=== PATIENT | female | born 2000 | race African-American/Black ===

== ENCOUNTER 2025-03-14 07:47 | Outpatient (AMB) | payer OTHER, SELFPAY ==
--- OUTSIDE RECORDS SUMMARY | 2007-03-11 20:00 | XMS_ITS | Continuity of Care Document ---
Author Organization [facility] vices Address [address] [place] [address] Phone Care Team Providers Care Supervisor Special Effects Name Role Phone Unavailable Unavailable Unavailable Procedures Procedure Date EST EXPANDED Advance Directives Directive Yes / No Effective Date File Name No Information Encounters Encounter Description Practice Location Reason(s) For Visit Diagnoses Date Provider Providers Copied on Encounter [facility], [address] [place] [address], [id number], tel:[phone] Conversion STREPTOCOCCAL SORE THROAT No Information EST EXPANDED [facility], [address] [place] [address], [address], [place] tel:[phone] [facility] No Information No Information Family History Family Member Type Diagnosis Age At Onset No Information Payers Payer name Insurance type Covered green party ID Authoriza tion(s) No Information Social History Type Description Quantity Date Captured Comments Sex Female Smoking Status No Information Chief Complaint And Reason For Visit No Information Reason For Referral Reason For Referral No Information History Of Present Illness Encounter Date Complaint History Of Prese nt Illness No Information Functional Status Date Functional Assessmen t No Information Instructions Date Instruction Additional Infor mation No Information Assessments Type Assessment Date No Information Patient Care Teams Name Effective Dates (start - stop) Status Members No Information
[2025-03-14 07:52] VITALS: BP 128/72; PULSE 79; O2SAT 98; BMI 44.2
--- NOTE | 2025-03-14 07:52 | A.OFFPC_ITS ---
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 Presenting with management of hypothyroidism, anxiety, and insomnia, along with addressing knee and ankle pain. The patient has a history of hypothyroidism and has been prescribed levothyroxine, but has not been taking it consistently due to lack of a primary care provider and insurance issues. She reports that when she was taking the medication regularly, her mood and energy levels improved. The patient reports experiencing anxiety, particularly in social settings, and has been considering medication but is hesitant due to concerns about taking pills. She has been seeing a therapist, which has been helpful, but has not been consistent with appointments recently. The patient experiences insomnia, which she attributes to anxiety and racing thoughts at night. She has tried various supplements and therapies without significant improvement. The patient reports chronic knee and ankle pain due to previous injuries that were not fully treated. She has experienced multiple sprains and impacts, leading to stiffness and pain, particularly in the right knee. The patient has a family history of HCM and is seeking screening for the condition. She also mentions having constipation. [facility] Medical History Larry thyroiditis Surgical History S/P tonsillectomy Family History Mother HOCM (hypertrophic obstructive cardiomyopathy) Father No problems noted. Sister No problems noted. Brother No problems noted. Other Mental health disorder Social History Housing: Apartment Patient Tobacco Use Status: Never used Tobacco Tobacco use type: Cigarette e-Cigarette/Vaping Use: Never Used Second Hand Smoke Exposure: Yes service: No Current occupational status: employed Current occupation: [employer] Current occupational exposures/hazards: No Cognitive needs: No Hearing needs: No Vision needs: Yes Questionnaire PHQ-9 Over the last 2 weeks, how often have you been bothered by any of the following problems? 1. Little interest or pleasure in doing things: several days 2. Feeling down, depressed, or hopeless: several days 3. Trouble falling or staying asleep, or sleeping too much: more than half the days 4. Feeling tired or having little energy: nearly every day 5. Poor appetite or overeating: several days 6. Feeling bad about yourself - or that you are a failure or have let yourself or your family down: several days 7. Trouble concentrating on things, such as reading the newspaper or watching television: several days 8. Moving or speaking so slowly that other people could have noticed. Or the opposite - being so fidgety or restless that you have been moving around a lot more than usual: more than half the days 9. Thoughts that you would be better off or of hurting yourself in some way: several days Total score: 13 Depression Screening Interpretation: Positive (counseling ) Depression Screening Follow-up: Existing condition and In treatment Depression Screening Done: Yes 93520 - PHQ-9 Billing: Yes Source: Developed by Drs. Talib Gonzalez, Janette Zamorano, Epifanio Pinzon and colleagues, with an educational kee from [employer]. Thrive Questionnaire Date Thrive assessed: 03/14/25 I am a: Patient What is your living situation today?: I have a steady place to live Within the past 12 months, did the food you bought not last and you didn't have the money to get more?: I choose not to answer this question Within the past 12 months, did you worry whether your food would run out before you got money to buy more?: I choose not to answer this question Do you have trouble paying for medicines?: No Do you have trouble getting transportation to medical appointments?: No Do you have trouble paying your heating and electricity bill?: No Do you have trouble taking care of your child, family member or friend?: No Do you have trouble with day-to-day activities such as bathing, preparing meals, shopping, managing finances, etc.?: No Are you currently unemployed and looking for a job?: No Are you interested in more education?: Yes Please select the resources that you would like help with: Paying for medicine Currently or been in a relationship where the following occur: No concerns reported THRIVE Score: 0 AUDIT C Alcohol Use Questionnaire (AUDIT-C) 1. How often do you have a drink containing alcohol?: 2-3 times a week 2. How many drinks containing alcohol do you have on a typical day when you are drinking?: 1 or 2 3. How often do you have six or more drinks on one occasion?: Less than monthly Total Score: 4 Score Reviewed/Action Taken: Yes KYE-7 AMB Questionnaire KYE-7 Date KYE - 7 assessed: 03/14/25 Feeling nervous, anxious, or on edge: 2 = More than half the days Not being able to stop or control worryin = Several days Worrying too much about different things: 1 = Several days Trouble relaxin = More than half the days Being so restless that it is hard to sit still: 1 = Several days Becoming easily annoyed or irritable: 1 = Several days Feeling afraid as if something awful might happen: 1 = Several days Total KYE-7 score (0-4 normal; 5-9 mild; 10-14 moderate; 15-21 severe): 9 Source: Developed by Drs. Talib Gonzalez, Janette Zamorano, Epifanio Pinzon and colleagues, with an educational kee from [employer]. KYE-7 Assessment Billing KYE-7 Assessment Tool: KYE-7 Assessment 77561 Review of Systems Const Denies body aches, Denies fatigue, Denies fever(s) and Denies weakness Eyes Reports no additional complaints, Denies change in vision and Reports requires corrective lenses ENT Denies dizziness, Denies facial pain and Denies nasal congestion Card Denies chest pain, Denies leg edema, Denies lightheadedness and Denies dyspnea Resp Denies dyspnea GI Denies abdominal pain, Reports constipation, Denies dyspepsia, Denies diarrhea, Denies nausea and Denies vomiting Musc Reports as per HPI and Denies back pain Skin/Breast Reports system reviewed and no additional complaints, except as documented Neuro Denies dizziness and Denies weakness Psych Reports no additional complaints Endo Denies fatigue Physical exam (Primary Care) Vital Signs: Last Vital Signs Pulse 79 03/14/25 07:52 BP 128/72 03/14/25 07:52 Pulse Ox 98 03/14/25 07:52 Oxygen Delivery Method Room Air 03/14/25 07:52 BMI result Body Mass Index 44.2 Tobacco/Smoking Status: Tobacco use Status Tobacco use date assessed 03/14/25 03/14/25 07:57 Patient Tobacco Use Status Never used Tobacco 03/14/25 07:57 Tobacco use type Cigarette 03/14/25 07:57 e-Cigarette/Vaping Use Never Used 03/14/25 07:57 PHQ-9: PHQ-9 Score PHQ-9: Total score 13 03/14/25 08:48 Depression Screening Interpretation: Positive (counseling ) Depression Screening Follow-up: Existing condition and In treatment Thrive Assessment: Date of Thrive Assessment Date Thrive assessed 03/14/25 03/14/25 07:55 Currently or been in a relationship where the following occur: No concerns reported Const General: cooperative, healthy appearing, comfortable and no acute distress Orientation/consciousness: patient oriented x3 HENMT Head: Yes normocephalic Ears: hearing grossly normal bilaterally General nose exam: Normal external nose present Eyes General: appearance normal, both eyes and all related structures Conjunctivae: conjunctivae normal Neck Neck: Yes full ROM and Yes no lymphadenopathy Resp Effort & Inspection: normal respiratory effort Auscultation: clear to auscultation bilaterally, no crackles, no rales, no rhonchi and no wheezes Cardio Rate: regular rate Rhythm: regular rhythm Skin General skin exam: no rashes or lesions noted Neuro General: patient oriented x3 Gait exam (Neuro): Normal gait present Extrem General: Yes normal to inspection, Yes full ROM and No edema Psych Affect: normal affect Attitude: cooperative Insight: Good insight present (Psych) Judgement: Good judgement present (Psych) Coding Level of Care Code New Pt Level 4 (26888) Diagnoses Hypothyroidism E03.9 Morbid obesity with BMI of 40.0-44.9, adult E66.01; Z68.41 PCOS (polycystic ovarian syndrome) E28.2 Anxiety F41.9 Bilateral knee pain M25.561; M25.562 Bilateral ankle pain M25.571; M25.572 Family history of hypertrophic cardiomyopathy Z82.49 Constipation, unspecified constipation type K59.00 Constipation type: unspecified constipation type Insomnia G47.00 Additional Codes KYE-7 Assessment Billing - KYE-7 Assessment Tool: KYE-7 Assessment 28855 ([id number]) PHQ-9 - 10208 - PHQ-9 Billing: Yes ([id number]) Assessment & Plan Assessment & Plan (1) Hypothyroidism: Comment: Larry Code(s): E03.9 - Hypothyroidism, unspecified Category: Medical Plan: She has been without her LEvothyroxine for several months. Plan to restart on her previous dose and obtain blood work for further evaluation. (2) Morbid obesity with BMI of 40.0-44.9, adult: Code(s): E66.01 - Morbid (severe) obesity due to excess calories; Z68.41 - Body mass index [BMI] 40.0-44.9, adult Category: Medical Plan: Healthy diet and regular exercise is encouraged. (3) PCOS (polycystic ovarian syndrome): Code(s): E28.2 - Polycystic ovarian syndrome Category: Medical Plan: Continue to follow with [facility] [place]. (4) Anxiety: Code(s): F41.9 - Anxiety disorder, unspecified Category: Medical Plan: Anxiety is likely multifactorial. She has been having worsening anxiety over the last several months which does also correlate with the discontinuation of her levothyroxine. Plan to restart on medication at this time. She is currently following with a counselor and would like to hold off on medication to treat anxiety at this time. Plan to follow up in 3 months. (5) Bilateral knee pain: Code(s): M25.561 - Pain in right knee; M25.562 - Pain in left knee Category: Medical Plan: She has had multiple injuries to bilateral knees and ankles and continues to have joint stiffness. Recommend PT at this time and patient was provided the order to bring to location of her choice. Tylenol, Ibuprofen and heating pads as needed. (6) Bilateral ankle pain: Code(s): M25.571 - Pain in right ankle and joints of right foot; M25.572 - Pain in left ankle and joints of left foot Category: Medical Plan: see above (7) Family history of hypertrophic cardiomyopathy: Comment: Mother Code(s): Z82.49 - Family history of ischemic heart disease and other diseases of the circulatory system Category: Medical Plan: Patient's mother has a history of HCM and she was advised to have testing done to rule out HCM. Her sister recently had echo. Echo ordered today. She is asymptomatic at this time. (8) Constipation: Code(s): K59.00 - Constipation, unspecified Category: Medical Qualifiers: Constipation type: unspecified constipation type Qualified Code(s): K59.00 - Constipation, unspecified Plan: Discussed 3 rules of constipation; drink plenty of water, exercise as tolerated and increase fiber intake. She was also provided with low FODMAP diet handout to help with possible IBS-C (9) Insomnia: Code(s): G47.00 - Insomnia, unspecified Category: Medical Plan: Declining medication at this time. Plan The patient will resume levothyroxine at 100 mcg daily to manage hypothyroidism, with follow-up blood work planned in a month to assess thyroid function. For anxiety and insomnia, the patient is considering medication options, including Zoloft and Wellbutrin, but will first focus on managing thyroid levels before starting any new medications. Physical therapy is recommended for knee and ankle pain to improve mobility and reduce stiffness, with a referral provided for local services. An echocardiogram is ordered to screen for hypertrophic cardiomyopathy due to family history, and the patient is advised to schedule this at a convenient location. The patient is encouraged to maintain a high- fiber diet and adequate hydration to manage suspected irritable bowel syndrome symptoms. This note was constructed using voice recognition software. While every effort has been made to ensure accuracy and warehouse shipping clerk, still areas may have been included sometimes these areas may affect the content or meeting of the given symptoms. Total time spent caring for the patient today was 30 minutes. This includes time spent before the visit reviewing the chart, time spent during the visit, and time spent after the visit and documentation. Patient was informed and verbally consented to the use of an ambient scribe for clinic note documentation during this visit. Orders: Orders TSH reflex Free T4 Today E03.9 - Hypothyroidism, unspecified, Z13.29 - Encounter for screening for other suspected endocrine disorder Vitamin B12 and Folate Today Z13.21 - Encounter for screening for nutritional disorder Comprehensive Met. Panel Today Z13.1 - Encounter for screening for diabetes mellitus Complete Blood Count Auto Diff Today Z13.0 - Encounter for screening for diseases of the blood and blood-forming organs and certain disorders involving the immune mechanism, Z13.1 - Encounter for screening for diabetes mellitus PT Evaluation and Treatment Today M25.561 - Pain in right knee, M25.562 - Pain in left knee, M25.571 - Pain in right ankle and joints of right foot, M25.572 - Pain in left ankle and joints of left foot CA echo transthoracic complete Today Z82.49 - Family history of ischemic heart disease and other diseases of the circulatory system Free T4 (Free Thyroxine) Today E03.9 - Hypothyroidism, unspecified, Z00.00 - Encounter for general adult medical examination without abnormal findings Vitamin D 25-OH Total Today Z13.21 - Encounter for screening for nutritional disorder Medications: New levothyroxine (Levoxyl) 100 mcg PO DAILY 30 tabs 0RF
== END 2025-03-14 08:46 | disposition home or self-care (01) ==
LOC: HO.HMCH 07:48
DX: E03.9 Hypothyroidism, unspecified (principal); E66.01 Morbid (severe) obesity due to excess calories; Z68.41 Body mass index [BMI] 40.0-44.9, adult; E28.2 Polycystic ovarian syndrome; F41.9 Anxiety disorder, unspecified; M25.561 Pain in right knee; M25.562 Pain in left knee; M25.571 Pain in right ankle and joints of right foot; M25.572 Pain in left ankle and joints of left foot; Z82.49 Family history of ischemic heart disease and other diseases of the circulatory system; K59.00 Constipation, unspecified; G47.00 Insomnia, unspecified

== ENCOUNTER → 2025-03-14 07:47 | Outpatient (BNVA) | payer OTHER, SELFPAY | DX: M25.561 Pain in right knee (principal); M25.562 Pain in left knee; M25.571 Pain in right ankle and joints of right foot; M25.572 Pain in left ankle and joints of left foot; E03.9 Hypothyroidism, unspecified; F41.9 Anxiety disorder, unspecified; G47.00 Insomnia, unspecified; E66.01 Morbid (severe) obesity due to excess calories; E28.2 Polycystic ovarian syndrome; K59.00 Constipation, unspecified; Z82.49 Family history of ischemic heart disease and other diseases of the circulatory system; Z68.41 Body mass index [BMI] 40.0-44.9, adult; Z79.899 Other long term (current) drug therapy | CPT/HCPCS: 96127 ==